=== PATIENT | male | born 1965 | race Two or more races ===

== ENCOUNTER 2017-06-27 05:38 | Emergency (ER) | payer OTHER ==
[~2017-06-27] VITALS: Ht 167.6 cm; Wt 85.7 kg
[~2017-06-27 05:38] MED LIST: Depakote; Lisinopril
[2017-06-27 05:49] VITALS: BP 158/95
[2017-06-27 06:27] LABS: Basophils # (auto) 0 uL; Basophils % (auto) 0.4 % (0.0-2.0); CONDITION Y; Eosinophils # (auto) 0.1 uL; Eosinophils % (auto) 0.6 % (0.0-7.0); Hematocrit 44.2 % (41.0-53.0); Hemoglobin 14.7 g/dL (13.5-17.5); Lymphocytes % (auto) 19.7 % (10.0-50.0); Mean Corpuscular Hemoglobin 30.6 pg (28.0-32.0); Mean Corpuscular Hgb Conc. 33.3 g/dL (32.0-36.0); Mean Platelet Volume 9.4 fL (7.4-10.4); Monocytes # (auto) 0.8 uL; Monocytes % (auto) 8.1 % (0.0-12.0); Neutrophils # (auto) 7.2 uL; Neutrophils % (auto) 71.2 % (37.0-80.0); Platelet Count (auto) 206 10^3/uL (140-450); Red Cell Distribution Width 14.1 % (11.6-16.0); White Blood Cell 10.1 10^3/uL (4.4-10.8)
[2017-06-27 06:49] LABS: Albumin 3.4 g/dL (3.4-5.0); Anion Gap 9 (5-15); Aspartate Aminotransferase 10 U/L (15-37); BUN/Creatinine Ratio 18.9; Blood Urea Nitrogen 17 mg/dL (7-18); Calcium 8.4 mg/dL (8.5-10.1); Carbon Dioxide 25 mmol/L (21-32); Chloride 109 mmol/L (98-107); GFR African American 114 mL/min; GFR Non-African American 95 mL/min; Glucose 109 mg/dL (74-106); Potassium 4.2 mmol/L (3.5-5.1); Sodium 143 mmol/L (136-145)
[2017-06-27 06:54] LABS: Alkaline Phosphatase 70 U/L (45-117); Bilirubin, Total 0.6 mg/dL (0.2-1.0); Total Protein 6.8 g/dL (6.4-8.2)
== END 2017-06-27 09:27 | disposition home or self-care (01) ==
LOC: ER 05:38
DX: S29.011A Strain of muscle and tendon of front wall of thorax, initial encounter (principal); I10 Essential (primary) hypertension; M25.512 Pain in left shoulder; X58.XXXA Exposure to other specified factors, initial encounter; Y93.89 Activity, other specified; Y92.89 Other specified places as the place of occurrence of the external cause; Y99.8 Other external cause status
CPT/HCPCS: 36415; 71010; 80053; 84484; 85025; 93005

== ENCOUNTER → 2021-11-15 | Outpatient (CLI) | payer MEDICAID ==
[2021-11-15 08:42] LABS: Basophils # (auto) 0 10 ^3/uL (0-0.2); Basophils % (auto) 0.6 % (0.0-2.0); Eosinophils # (auto) 0.1 10 ^3/uL (0-0.8); Eosinophils % (auto) 1.5 % (0.0-7.0); Hematocrit 45.2 % (41.0-53.0); Mean Corpuscular Hemoglobin 31.1 pg (28.0-32.0); Mean Corpuscular Hgb Conc. 33.2 g/dL (32.0-36.0); Mean Corpuscular Volume 93.6 fL (80.0-100.0); Monocytes # (auto) 0.7 10 ^3/uL (0-1.3); Monocytes % (auto) 9.1 % (0.0-12.0); Neutrophils # (auto) 4.2 10 ^3/uL (1.6-8.6); Neutrophils % (auto) 51.8 % (37.0-80.0); Nucleated Red Blood Cells % 0.1 %; Red Blood Cells 4.84 10^6/uL (4.5-5.90); Red Cell Distribution Width 13.8 % (11.8-14.3); White Blood Cell 8.1 10^3/uL (4.4-10.8)
[2021-11-15 08:48] LABS: Urine Bacteria NONE SEEN /hpf (None Seen); Urine Blood Negative /uL (Negative); Urine Mucus FEW (None Seen); Urine Specific Gravity 1.027 (1.001-1.035); Urine WBC 1 /hpf (0 - 3)
[2021-11-15 09:02] LABS: Albumin 3.2 g/dL (3.4-5.0); Calcium 8.4 mg/dL (8.5-10.1); Potassium 4.2 mmol/L (3.5-5.1)
[2021-11-15 09:08] LABS: BUN/Creatinine Ratio 22.3; Bilirubin, Total 0.4 mg/dL (0.2-1.0); Total Protein 6.6 g/dL (6.4-8.2)
== END | disposition home or self-care (01) ==
LOC: LAB 08:14
PROVIDERS: ATTEND Student in an Organized Health Care Education/Training Program
DX: G40.909 Epilepsy, unspecified, not intractable, without status epilepticus (principal)
CPT/HCPCS: 36415; 80053; 80061; 80164; 81001; 83036; 84443; 85025

== ENCOUNTER → 2022-08-02 | Outpatient (CLI) | payer MEDICAID ==
[2022-08-02 10:19] LABS: Basophils # (auto) 0.1 10 ^3/uL (0-0.2); Basophils % (auto) 0.9 % (0.0-2.0); Eosinophils # (auto) 0.1 10 ^3/uL (0-0.8); Eosinophils % (auto) 1.6 % (0.0-7.0); Hematocrit 45.3 % (41.0-53.0); Hemoglobin 14.9 g/dL (13.5-17.5); Lymphocytes # (auto) 2.4 10 ^3/uL (0.4-5.4); Lymphocytes % (auto) 31.8 % (10.0-50.0); Mean Corpuscular Hemoglobin 30.4 pg (28.0-32.0); Mean Corpuscular Volume 92.2 fL (80.0-100.0); Monocytes # (auto) 0.7 10 ^3/uL (0-1.3); Monocytes % (auto) 8.7 % (0.0-12.0); Neutrophils # (auto) 4.3 10 ^3/uL (1.6-8.6); Red Blood Cells 4.91 10^6/uL (4.5-5.90); Red Cell Distribution Width 13.7 % (11.8-14.3); Urine Bacteria NONE SEEN /hpf (None Seen); Urine Blood Negative /uL (Negative); Urine Specific Gravity 1.024 (1.001-1.035); Urine WBC <1 /hpf (0 - 3); White Blood Cell 7.6 10^3/uL (4.4-10.8)
[2022-08-02 10:49] LABS: Calcium 8.5 mg/dL (8.5-10.1); Potassium 4.5 mmol/L (3.5-5.1)
[2022-08-02 10:56] LABS: BUN/Creatinine Ratio 20.5; Bilirubin, Total 0.4 mg/dL (0.2-1.0); Total Protein 6.3 g/dL (6.4-8.2)
== END | disposition home or self-care (01) ==
LOC: LAB 09:27
PROVIDERS: ATTEND Student in an Organized Health Care Education/Training Program
DX: Z12.11 Encounter for screening for malignant neoplasm of colon (principal); I10 Essential (primary) hypertension; R73.9 Hyperglycemia, unspecified
CPT/HCPCS: 36415; 80053; 80061; 81001; 83036; 84443; 85025

== ENCOUNTER → 2022-08-12 | Outpatient (CLI) | payer MEDICAID | END | disposition home or self-care (01) | LOC: LAB 13:16 | PROVIDERS: ATTEND Student in an Organized Health Care Education/Training Program | DX: Z12.11 Encounter for screening for malignant neoplasm of colon (principal); R73.9 Hyperglycemia, unspecified; I10 Essential (primary) hypertension | CPT/HCPCS: 82270 ==

== ENCOUNTER → 2022-12-06 | Outpatient (CLI) | payer MEDICAID ==
[2022-12-06 10:22] LABS: Basophils # (auto) 0.1 10 ^3/uL (0-0.2); Basophils % (auto) 1.2 % (0.0-2.0); Eosinophils # (auto) 0.1 10 ^3/uL (0-0.8); Hematocrit 44.5 % (41.0-53.0); Hemoglobin 14.8 g/dL (13.5-17.5); Lymphocytes # (auto) 2.6 10 ^3/uL (0.4-5.4); Lymphocytes % (auto) 35.1 % (10.0-50.0); Mean Corpuscular Hemoglobin 31.4 pg (28.0-32.0); Mean Corpuscular Hgb Conc. 33.2 g/dL (32.0-36.0); Mean Corpuscular Volume 94.5 fL (80.0-100.0); Monocytes # (auto) 0.7 10 ^3/uL (0-1.3); Monocytes % (auto) 8.8 % (0.0-12.0); Neutrophils % (auto) 53.9 % (37.0-80.0); Red Blood Cells 4.72 10^6/uL (4.5-5.90); Red Cell Distribution Width 13.9 % (11.8-14.3); White Blood Cell 7.5 10^3/uL (4.4-10.8)
[2022-12-06 10:29] LABS: Urine Bacteria NONE SEEN /hpf (None Seen); Urine Blood Negative /uL (Negative); Urine Mucus FEW (None Seen); Urine Specific Gravity 1.023 (1.001-1.035); Urine WBC 12 /hpf (0 - 3)
[2022-12-06 11:19] LABS: Albumin 3.2 g/dL (3.4-5.0); Calcium 8.4 mg/dL (8.5-10.1); Potassium 4.6 mmol/L (3.5-5.1)
[2022-12-06 11:24] LABS: BUN/Creatinine Ratio 17.9; Bilirubin, Total 1.1 mg/dL (0.2-1.0); Total Protein 6.6 g/dL (6.4-8.2)
== END | disposition home or self-care (01) ==
LOC: LAB 09:57
PROVIDERS: ATTEND Student in an Organized Health Care Education/Training Program
DX: I10 Essential (primary) hypertension (principal); R73.9 Hyperglycemia, unspecified; R60.0 Localized edema
CPT/HCPCS: 36415; 80053; 80061; 81001; 83036; 83880; 85025

== ENCOUNTER → 2023-05-30 | Outpatient (CLI) | payer MEDICAID ==
[2023-05-30 08:58] LABS: Urine Bacteria NONE SEEN /hpf (None Seen); Urine Blood Negative /uL (Negative); Urine Clarity Clear (Clear); Urine Color Yellow (Yellow); Urine Mucus FEW (None Seen); Urine Protein, UAD TRACE (Negative); Urine Specific Gravity 1.026 (1.001-1.035); Urine Urobilinogen Normal (Negative); Urine WBC 1 /hpf (0 - 3); Urine pH 5.5 (5.0-8.0)
[2023-05-30 08:59] LABS: Basophils # (auto) 0.1 10 ^3/uL (0-0.2); Basophils % (auto) 0.9 % (0.0-2.0); Eosinophils # (auto) 0.1 10 ^3/uL (0-0.8); Eosinophils % (auto) 1.5 % (0.0-7.0); Hematocrit 46.9 % (41.0-53.0); Hemoglobin 15.5 g/dL (13.5-17.5); Lymphocytes # (auto) 3.5 10 ^3/uL (0.4-5.4); Lymphocytes % (auto) 44.9 % (10.0-50.0); Mean Corpuscular Hemoglobin 31.4 pg (28.0-32.0); Monocytes # (auto) 0.6 10 ^3/uL (0-1.3); Monocytes % (auto) 8.4 % (0.0-12.0); Neutrophils # (auto) 3.4 10 ^3/uL (1.6-8.6); Neutrophils % (auto) 44.3 % (37.0-80.0); Nucleated Red Blood Cells % 0.1 %; Red Blood Cells 4.93 10^6/uL (4.5-5.90); Red Cell Distribution Width 14.3 % (11.8-14.3); White Blood Cell 7.7 10^3/uL (4.4-10.8)
[2023-05-30 09:43] LABS: BUN/Creatinine Ratio 18.5 (10.0-20.0); Calcium 8.7 mg/dL (8.5-10.1); Potassium 4.5 mmol/L (3.5-5.1)
== END | disposition home or self-care (01) ==
LOC: LAB 08:43
PROVIDERS: ATTEND Student in an Organized Health Care Education/Training Program
DX: B35.1 Tinea unguium (principal)
CPT/HCPCS: 36415; 80048; 81001; 83036; 85025

== ENCOUNTER → 2023-09-25 | Outpatient (CLI) | payer MEDICAID ==
[2023-09-25 08:31] LABS: Basophils # (auto) 0.1 10 ^3/uL (0-0.2); Basophils % (auto) 0.8 % (0.0-2.0); Eosinophils # (auto) 0.1 10 ^3/uL (0-0.8); Eosinophils % (auto) 0.7 % (0.0-7.0); Hematocrit 49.2 % (41.0-53.0); Hemoglobin 16.2 g/dL (13.5-17.5); Lymphocytes # (auto) 2.9 10 ^3/uL (0.4-5.4); Lymphocytes % (auto) 37.5 % (10.0-50.0); Mean Corpuscular Hemoglobin 31.2 pg (28.0-32.0); Mean Corpuscular Volume 94.4 fL (80.0-100.0); Monocytes # (auto) 0.6 10 ^3/uL (0-1.3); Monocytes % (auto) 7.6 % (0.0-12.0); Neutrophils # (auto) 4.1 10 ^3/uL (1.6-8.6); Neutrophils % (auto) 53.4 % (37.0-80.0); Nucleated Red Blood Cells % 0.1 %; Red Blood Cells 5.21 10^6/uL (4.5-5.90); Red Cell Distribution Width 14.1 % (11.8-14.3); White Blood Cell 7.6 10^3/uL (4.4-10.8)
[2023-09-25 08:38] LABS: Urine Bacteria NONE SEEN /hpf (None Seen); Urine Blood Negative /uL (Negative); Urine Clarity Clear (Clear); Urine Color Yellow (Yellow); Urine Hyaline Cast FEW /lpf (0 - 2); Urine Mucus FEW (None Seen); Urine Protein, UAD Negative (Negative); Urine Specific Gravity 1.022 (1.001-1.035); Urine Urobilinogen Normal (Negative); Urine WBC 1 /hpf (0 - 3); Urine pH 5.5 (5.0-8.0)
[2023-09-25 09:16] LABS: Alanine Aminotransferase 18 U/L (7-40); Albumin 4.5 g/dL (3.2-4.8); Alkaline Phosphatase 68 U/L (46-116); Anion Gap 5 (5-15); Aspartate Aminotransferase 15 U/L (13-40); BUN/Creatinine Ratio 14.4 (10.0-20.0); Blood Urea Nitrogen 13 mg/dL (9-23); Calcium 9.5 mg/dL (8.5-10.1); Carbon Dioxide 31 mmol/L (20-30); Chloride 105 mmol/L (98-107); Cholesterol 220 mg/dL (< 200); Glucose 102 mg/dL (74-106); HDL Cholesterol 50 mg/dL (40-59); LDL Cholesterol 175 mg/dL (< 100); Potassium 4.4 mmol/L (3.5-5.1); Sodium 141 mmol/L (136-145); Triglycerides 84 mg/dL (< 150)
== END | disposition home or self-care (01) ==
LOC: LAB 08:09
DX: I10 Essential (primary) hypertension (principal); R73.03 Prediabetes; M54.41 Lumbago with sciatica, right side
CPT/HCPCS: 36415; 80053; 80061; 80164; 81001; 83036; 84153; 85025

== ENCOUNTER → 2024-02-05 | Outpatient (CLI) | payer OTHER, MEDICAID ==
[2024-02-05 07:56] LABS: Urine Bacteria None Seen /hpf (None Seen)
[2024-02-05 08:06] LABS: Urine Blood Negative /uL (Negative); Urine Clarity Clear (Clear); Urine Color Yellow (Yellow); Urine Hyaline Cast FEW /lpf (0 - 2); Urine Mucus FEW (None Seen); Urine Protein, UAD Negative (Negative); Urine Specific Gravity 1.027 (1.001-1.035); Urine Urobilinogen Normal (Negative); Urine WBC 1 /hpf (0 - 3); Urine pH 5.5 (5.0-9.0)
[2024-02-05 08:11] LABS: Basophils # (auto) 0.1 10 ^3/uL (0-0.2); Eosinophils # (auto) 0.1 10 ^3/uL (0-0.8); Eosinophils % (auto) 1.7 % (0.0-7.0); Hematocrit 46.9 % (41.0-53.0); Hemoglobin 15.4 g/dL (13.5-17.5); Lymphocytes # (auto) 2.6 10 ^3/uL (0.4-5.4); Mean Corpuscular Hemoglobin 31.6 pg (28.0-32.0); Mean Corpuscular Hgb Conc. 32.9 g/dL (32.0-36.0); Monocytes # (auto) 0.5 10 ^3/uL (0-1.3); Monocytes % (auto) 8.2 % (0.0-12.0); Neutrophils # (auto) 2.7 10 ^3/uL (1.6-8.6); Neutrophils % (auto) 45.1 % (37.0-80.0); Red Blood Cells 4.88 10^6/uL (4.5-5.90); Red Cell Distribution Width 14.2 % (11.8-14.3); White Blood Cell 5.9 10^3/uL (4.4-10.8)
[2024-02-05 09:02] LABS: Alanine Aminotransferase 16 U/L (7-40); Albumin 4.3 g/dL (3.2-4.8); Alkaline Phosphatase 63 U/L (46-116); Anion Gap 7 (5-15); BUN/Creatinine Ratio 18.7 (10.0-20.0); Blood Urea Nitrogen 17 mg/dL (9-23); Calcium 9.5 mg/dL (8.5-10.1); Carbon Dioxide 29 mmol/L (20-30); Chloride 108 mmol/L (98-107); Glucose 101 mg/dL (74-106); LDL Cholesterol 165 mg/dL (< 100); Potassium 4.8 mmol/L (3.5-5.1); Sodium 144 mmol/L (136-145); Triglycerides 101 mg/dL (< 150)
[2024-02-05 09:03] LABS: Aspartate Aminotransferase 16 U/L (13-40); Cholesterol 213 mg/dL (< 200); HDL Cholesterol 41 mg/dL (40-59)
[2024-02-05 09:04] LABS: Bilirubin, Total 0.7 mg/dL (0.2-1.0); Total Protein 6.4 g/dL (5.7-8.2)
== END | disposition home or self-care (01) ==
LOC: LAB 07:41
PROVIDERS: ATTEND Student in an Organized Health Care Education/Training Program
DX: I10 Essential (primary) hypertension (principal); R73.9 Hyperglycemia, unspecified; G40.909 Epilepsy, unspecified, not intractable, without status epilepticus
CPT/HCPCS: 36415; 80053; 80061; 80164; 81001; 83036; 85025

== ENCOUNTER → 2024-05-06 | Outpatient (CLI) | payer MEDICARE ==
[2024-05-06 07:28] LABS: Urine Bacteria None Seen /hpf (None Seen)
[2024-05-06 07:57] LABS: Basophils # (auto) 0.1 10 ^3/uL (0-0.2); Eosinophils # (auto) 0.1 10 ^3/uL (0-0.8); Eosinophils % (auto) 1.8 % (0.0-7.0); Hematocrit 43.8 % (41.0-53.0); Hemoglobin 14.7 g/dL (13.5-17.5); Lymphocytes # (auto) 2.7 10 ^3/uL (0.4-5.4); Mean Corpuscular Hemoglobin 31.8 pg (28.0-32.0); Mean Corpuscular Hgb Conc. 33.6 g/dL (32.0-36.0); Mean Corpuscular Volume 94.7 fL (80.0-100.0); Monocytes # (auto) 0.6 10 ^3/uL (0-1.3); Monocytes % (auto) 9.9 % (0.0-12.0); Neutrophils # (auto) 2.6 10 ^3/uL (1.6-8.6); Neutrophils % (auto) 42.3 % (37.0-80.0); Nucleated Red Blood Cells % 0.1 %; Red Blood Cells 4.63 10^6/uL (4.5-5.90); Red Cell Distribution Width 14.4 % (11.8-14.3)
[2024-05-06 08:08] LABS: Urine Blood Negative /uL (Negative); Urine Clarity Clear (Clear); Urine Color Yellow (Yellow); Urine Protein, UAD TRACE (Negative); Urine Specific Gravity 1.027 (1.001-1.035); Urine Urobilinogen Normal (Negative); Urine WBC <1 /hpf (0 - 3)
[2024-05-06 08:32] LABS: Alanine Aminotransferase 18 U/L (7-40); Alkaline Phosphatase 58 U/L (46-116); Anion Gap 2 (5-15); Aspartate Aminotransferase 12 U/L (13-40); BUN/Creatinine Ratio 17.4 (10.0-20.0); Bilirubin, Total 0.9 mg/dL (0.2-1.0); Blood Urea Nitrogen 15 mg/dL (9-23); Calcium 9.4 mg/dL (8.7-10.4); Carbon Dioxide 31 mmol/L (20-30); Chloride 108 mmol/L (98-107); Cholesterol 171 mg/dL (< 200); Glucose 103 mg/dL (74-106); HDL Cholesterol 45 mg/dL (40-59); LDL Cholesterol 123 mg/dL (< 100); Potassium 5.2 mmol/L (3.5-5.1); Sodium 141 mmol/L (136-145); Total Protein 6.2 g/dL (5.7-8.2); Triglycerides 73 mg/dL (< 150)
== END | disposition home or self-care (01) ==
LOC: LAB 07:05
PROVIDERS: ATTEND Student in an Organized Health Care Education/Training Program
DX: Z12.11 Encounter for screening for malignant neoplasm of colon (principal); I10 Essential (primary) hypertension; E78.5 Hyperlipidemia, unspecified; G40.89 Other seizures; R73.9 Hyperglycemia, unspecified
CPT/HCPCS: 36415; 80053; 80061; 80164; 81001; 82274; 83036; 85025

== ENCOUNTER → 2025-02-18 | Outpatient (CLI) | payer MEDICARE ==
[2025-02-18 08:19] LABS: Urine Bacteria None Seen /hpf (None Seen)
[2025-02-18 08:34] LABS: Basophils # (auto) 0.1 10 ^3/uL (0-0.2); Eosinophils # (auto) 0.1 10 ^3/uL (0-0.8); Eosinophils % (auto) 1.9 % (0.0-7.0); Hematocrit 47.2 % (41.0-53.0); Hemoglobin 15.6 g/dL (13.5-17.5); Lymphocytes # (auto) 2.6 10 ^3/uL (0.4-5.4); Lymphocytes % (auto) 40.5 % (10.0-50.0); Mean Corpuscular Hemoglobin 30.9 pg (28.0-32.0); Mean Corpuscular Hgb Conc. 33.2 g/dL (32.0-36.0); Mean Corpuscular Volume 93.3 fL (80.0-100.0); Monocytes # (auto) 0.5 10 ^3/uL (0-1.3); Monocytes % (auto) 8.5 % (0.0-12.0); Neutrophils % (auto) 48.1 % (37.0-80.0); Nucleated Red Blood Cells % 0.1 %; Platelet Count (auto) 163 10^3/uL (140-450); Red Blood Cells 5.06 10^6/uL (4.5-5.90); Red Cell Distribution Width 14.2 % (11.8-14.3); White Blood Cell 6.3 10^3/uL (4.4-10.8)
[2025-02-18 08:40] LABS: Urine Blood Negative /uL (Negative); Urine Clarity Clear (Clear); Urine Color Light-Yellow (Yellow); Urine Protein, UAD Negative (Negative); Urine Squamous Epithelial Cell None Seen /hpf (<5); Urine Urobilinogen Normal (Negative); Urine WBC < 1 /HPF (0-3); Urine pH 5.5 (5.0-9.0)
[2025-02-18 09:02] LABS: Alanine Aminotransferase 15 U/L (7-40); Albumin 4.3 g/dL (3.2-4.8); Alkaline Phosphatase 64 U/L (46-116); Anion Gap 8 (5-15); Aspartate Aminotransferase 17 U/L (13-40); BUN/Creatinine Ratio 13.5 (10.0-20.0); Bilirubin, Total 1.1 mg/dL (0.2-1.0); Blood Urea Nitrogen 12 mg/dL (9-23); Calcium 9.6 mg/dL (8.7-10.4); Chloride 104 mmol/L (98-107); HDL Cholesterol 44 mg/dL (40-59); Potassium 4.8 mmol/L (3.5-5.1); Sodium 144 mmol/L (136-145); Total Protein 6.7 g/dL (5.7-8.2); Triglycerides 119 mg/dL (< 150)
[2025-02-18 09:04] LABS: Carbon Dioxide 32 mmol/L (20-31); Cholesterol 214 mg/dL (< 200); Glucose 112 mg/dL (74-106); LDL Cholesterol 164 mg/dL (< 100)
== END | disposition home or self-care (01) ==
LOC: LAB 08:05
PROVIDERS: ATTEND Student in an Organized Health Care Education/Training Program
DX: I10 Essential (primary) hypertension (principal); R73.9 Hyperglycemia, unspecified; Z12.11 Encounter for screening for malignant neoplasm of colon; G40.909 Epilepsy, unspecified, not intractable, without status epilepticus
CPT/HCPCS: 36415; 80053; 80061; 80164; 81001; 82274; 83036; 84443; 85025

== ENCOUNTER 2025-07-17 06:56 | Outpatient (CLI) | payer MEDICAID ==
[2025-07-17 08:07] LABS: Hematocrit 46.8 % (41.0-53.0); Hemoglobin 15.8 g/dL (13.5-17.5); Mean Corpuscular Hemoglobin 31.4 pg (28.0-32.0); Mean Corpuscular Volume 93.4 fL (80.0-100.0); Nucleated Red Blood Cells % 0.0 %
[2025-07-17 08:24] LABS: Alanine Aminotransferase 15 U/L (7-40); Albumin 4.2 g/dL (3.2-4.8); Alkaline Phosphatase 65 U/L (46-116); Anion Gap 6 (5-15); BUN/Creatinine Ratio 14.7 (10.0-20.0); Blood Urea Nitrogen 14 mg/dL (9-23); Calcium 9.3 mg/dL (8.7-10.4); Carbon Dioxide 31 mmol/L (20-31); Chloride 105 mmol/L (98-107); Cholesterol 198 mg/dL (< 200); Glucose 100 mg/dL (74-106); HDL Cholesterol 48 mg/dL (40-59); Sodium 142 mmol/L (136-145); Total Protein 6.8 g/dL (5.7-8.2); Triglycerides 101 mg/dL (< 150)
[2025-07-17 08:26] LABS: Bilirubin, Total 1.0 mg/dL (0.2-1.0)
[2025-07-17 08:27] LABS: Potassium 5.5 mmol/L (3.5-5.1)
== END 2025-07-17 17:00 | disposition home or self-care (01) ==
LOC: LAB 06:56
PROVIDERS: ATTEND Licensed Practical Nurse
DX: I10 Essential (primary) hypertension (principal); E78.5 Hyperlipidemia, unspecified; E55.9 Vitamin D deficiency, unspecified; G40.89 Other seizures; R70.0 Elevated erythrocyte sedimentation rate
CPT/HCPCS: 36415; 80053; 80061; 80164; 82043; 82306; 83036; 85025